=== PATIENT | female | born 1940 | race Caucasian/White ===

== ENCOUNTER 2018-03-07 07:24 | Day surgery (SDC) | payer MEDICARE, BC, SELFPAY ==
[2018-03-07] VITALS (7 sets, daily range): BP systolic 91–126; BP diastolic 42–59; PULSE 54–62; RESP 16; TEMP 36.4–37.1; O2SAT 94–100; BMI 22.5
[2018-03-07] MEDS: Lidocaine Jelly 2% 20 ML Syringe (URO-JET) 20 APPLIC (09:13)
--- NOTE | 2018-03-07 09:32 | PCM.DC.URO ---
Discharge Activity: Return to Normal Activity - in 24 hours May resume sexual activity in: No Restrictions Call your doctor if you observe: Fever of 101 or Higher, Inability to urinate, Shortness of breath, Chest pain Allergies/Adverse Reactions: Allergies codeine Allergy (Verified 02/28/18 09:39) Other hydrocodone [From Vicodin] Allergy (Verified 02/28/18 09:39) Other oxycodone Allergy (Verified 02/28/18 09:39) Other sulfamethoxazole [From Bactrim] Allergy (Verified 02/28/18 09:39) Other tramadol Allergy (Verified 02/28/18 09:39) Other trimethoprim [From Bactrim] Allergy (Verified 02/28/18 09:39) Other venlafaxine [From Effexor] Allergy (Verified 02/28/18 09:39) Other Medications to take at Discharge Ascorbic Acid [Vitamin C] 1,000 mg PO DAILY 02/28/18 Aspirin E.C. [Ecotrin] 81 mg PO DAILY@0800 02/28/18 Calcium Carbonate [Calcium] 600 mg PO BID 02/28/18 Cholecalciferol (Vitamin D3) [Vitamin D3] 400 unit PO DAILY 02/28/18 Cyanocobalamin (Vitamin B-12) [Vitamin B-12] 1,000 mcg PO DAILY 02/28/18 Estradiol/Norethindrone Acet [Estradiol-Noreth 0.5-0.1 mg Tb] 1 each PO DAILY 02/28/18 Iron Polysaccharide Complex [Ferrex 150] 150 mg PO DAILYCM 02/28/18 Magnesium 400 mg PO DAILY 02/28/18 Multivitamin [Daily Multiple Vitamin] 1 each PO DAILY 02/28/18 Polyethylene Glycol 3350 [Miralax] 17 gm PO DAILY 02/28/18 Trimipramine Maleate 100 mg PO DAILY 02/28/18 Primary Care Physician: Care Physician,No Primary [Primary Care Provider] - Test Results: Test results from this visit will be discussed in further detail at your follow-up appointment, if applicable. Please Follow Up With: Justyna Treviño MD - 12 months
--- NOTE | 2018-03-07 09:33 | PCM.IMDPSTOP ---
Immediate Post-Op Note Date of Procedure: 03/07/18 Primary Surgeon/Physician: Justyna Treviño MD boiler cleaner: Justyna Treviño Pre-Operative Diagnosis: history bladder cancer, interstitial cystitis Post-Operative Diagnosis: same Surgery/Procedure Performed:: cystoscopy Description of Surgical Findings:: Old scar from previous TUR visible. No new lesions identified. No Hunner's ulcers. Normal anatomy. Estimated Blood Loss: 0cc Specimen's removed: none - Admit VTE Documentation VTE Mechan Device Prophylaxis: SCD's Reason prophylaxis not ordered:: Treatment Not Indicated
--- NOTE | 2018-03-07 09:35 | PCM.OPRPT ---
Problem List (1) History of bladder cancer Status: Acute (2) Interstitial cystitis Status: Acute Report of Operation Date of Procedure: 03/07/18 Pre-Operative Diagnosis: history bladder cancer, interstitial cystitis Post-Operative Diagnosis: same Surgery/Procedure Performed:: cystoscopy Description of Surgical Findings:: Old scar from previous TUR visible. No new lesions identified. No Hunner's ulcers. Normal anatomy. 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 She has a history of transitional cell carcinoma of the bladder, low-grade and is presenting for her annual cystoscopic evaluation. She also has a history of interstitial cystitis and is to tolerate cystoscopy in the office. She was taken to the operating room and placed on operating room table. Anesthesia monitored the head neck area IV access and vital signs throughout the case. Once anesthesia was a probably administered the patient was placed into dorsal lithotomy position was prepped and draped in usual sterile fashion. A cystoscopic evaluation of the urethra and bladder was then performed using a 70? lens. The previous scar sites from her transitional cell carcinoma are identified. There are no new lesions seen. Her ureters were correctly located on the area of the trigone. There are no ulcerations from her interstitial cystitis identified. The patient's bladder was then emptied and she was awakened and taken recovery room in good condition. There were no complications during this procedure. - Complications none - Admit VTE Documentation VTE Mechan Device Prophylaxis: SCD's Reason prophylaxis not ordered:: Treatment Not Indicated
== END 2018-03-07 10:31 | disposition home or self-care (01) ==
LOC: SDC 07:25 → AC 07:28
PROVIDERS: Visit Provider Urology
PROC: 0TJB8ZZ Inspection of Bladder, Via Natural or Artificial Opening Endoscopic (ICD-10-PCS; CPT 52000; principal; 2018-03-07 08:40)
DX: N30.10 Interstitial cystitis (chronic) without hematuria (principal); Z85.51 Personal history of malignant neoplasm of bladder; D64.9 Anemia, unspecified; Z87.442 Personal history of urinary calculi
CPT/HCPCS: 00910; 52000; J7120

== ENCOUNTER 2019-02-27 07:13 | Day surgery (SDC) | payer MEDICARE, BC, SELFPAY ==
[2019-02-27 07:36] VITALS: BP 110/63; PULSE 59; RESP 16; TEMP 36.4; O2SAT 97; BMI 23.5
--- NOTE | 2019-02-27 08:21 | DCINST_ITS ---
Discharge Diet: No Restrictions Discharge Activity: Return to Normal Activity Call your doctor if you observe: Fever of 101 or Higher, Inability to urinate, Shortness of breath, Chest pain, Calf discomfort, Uncontrolled pain Allergies/Adverse Reactions: Allergies codeine Allergy (Verified 02/20/19 10:36) Other hydrocodone [From Vicodin] Allergy (Verified 02/20/19 10:36) Other oxycodone Allergy (Verified 02/20/19 10:36) Other sulfamethoxazole [From Bactrim] Allergy (Verified 02/20/19 10:36) Other tramadol Allergy (Verified 02/20/19 10:36) Other trimethoprim [From Bactrim] Allergy (Verified 02/20/19 10:36) Other venlafaxine [From Effexor] Allergy (Verified 02/20/19 10:36) Other Medications to take at Discharge Ascorbic Acid [Vitamin C] 1,000 mg PO DAILY 02/28/18 Aspirin E.C. [Ecotrin] 81 mg PO DAILY@0800 02/28/18 Calcium Carbonate [Calcium] 600 mg PO BID 02/28/18 Cholecalciferol (Vitamin D3) [Vitamin D3] 400 unit PO DAILY 02/28/18 Cyanocobalamin (Vitamin B-12) [Vitamin B-12] 1,000 mcg PO DAILY 02/28/18 Magnesium 400 mg PO DAILY 02/28/18 Multivitamin [Daily Multiple Vitamin] 1 each PO DAILY 02/28/18 Polyethylene Glycol 3350 [Miralax] 17 gm PO DAILY 02/28/18 D-Mannose [Mannose] 2 gm PO DAILY 02/20/19 Nitrofurantoin Macrocrystal [Macrodantin] 50 mg PO DAILY 02/20/19 Primary Care Physician: Care Physician,No Primary [Primary Care Provider] - Test Results: Test results from this visit will be discussed in further detail at your follow- up appointment, if applicable. Please Follow Up With: Justyna Treviño MD When: call office for appt Proposed Discharge Date: 02/27/19
--- NOTE | 2019-02-27 08:22 | OP.PCM_ITS ---
Problem List (1) History of bladder cancer Status: Acute (2) Interstitial cystitis Status: Acute Report of Operation Date of Procedure: 02/27/19 Pre-Operative Diagnosis: history of transitional cell carcinoma, interstitial c ystitis Post-Operative Diagnosis: same Surgery/Procedure Performed:: cystoscopy Description of Surgical Findings:: no recurrences, mass, erythema, ulceration or foreign body Type of Anesthesia:: MAC Specimen's removed: none Description of Procedure: The patient is a 78-year-old female with a long-standing history of transitional cell carcinoma of the bladder and interstitial cystitis. She has not had a recurrence of her TCC in many years. She now presents for her annual cystoscopy which is difficult for her to have done without anesthesia secondary to her interstitial cystitis. Informed consent was obtained and her preoperative culture is negative. She is taken to the operating room and placed in the operating room table. Anesthesia monitored the head, neck, airway, IV access and vital signs. Once anesthesia is a probably administered the patient was placed into dorsal lithotomy position was prepped and draped in usual sterile fashion. A cystourethroscopy was then performed with a 70 degree lens. There were no lesions, recurrences, masses, areas of erythema, ulceration or foreign body identified. Both ureteral orifices appeared to be in good anatomic position. The patient's bladder was emptied and the case was terminated. She was taken to the recovery room in good condition. There were no complications during this procedure. Grafts/Implants Used: none - Complications none - Admit VTE Documentation VTE Present on Admission: Yes VTE Mechan Device Prophylaxis: SCD's VTE Pharm Prophylaxis ordered?: No Reason prophylaxis not ordered:: Treatment Not Indicated
[2019-02-27 08:47] VITALS: BP 110/63; BP 92/53; PULSE 53; RESP 14; TEMP 36.3; O2SAT 95
[2019-02-27 08:52] VITALS: BP 102/63; BP 110/63; PULSE 52; RESP 16; O2SAT 97
[2019-02-27 08:57] VITALS: BP 105/53; BP 110/63; PULSE 49; RESP 16; O2SAT 95
[2019-02-27 09:02] VITALS: BP 108/67; BP 110/63; PULSE 52; RESP 16; TEMP 36.2; O2SAT 96
[2019-02-27 09:47] VITALS: BP 110/63
== END 2019-02-27 09:56 | disposition home or self-care (01) ==
LOC: SDC 07:14 → AC 07:17
PROVIDERS: Referring Provider Urology; Visit Provider Urology
PROC: 0TJB8ZZ Inspection of Bladder, Via Natural or Artificial Opening Endoscopic (ICD-10-PCS; CPT 52000; principal; 2019-02-27 08:40)
DX: N30.10 Interstitial cystitis (chronic) without hematuria (principal); N39.41 Urge incontinence; D64.9 Anemia, unspecified; Z87.440 Personal history of urinary (tract) infections; Z85.038 Personal history of other malignant neoplasm of large intestine; Z87.442 Personal history of urinary calculi; Z85.51 Personal history of malignant neoplasm of bladder; Z79.82 Long term (current) use of aspirin
CPT/HCPCS: 52000; J7120; J2405

== ENCOUNTER 2020-03-11 05:55 | Day surgery (SDC) | payer MEDICARE, BC, SELFPAY ==
[2020-03-11] VITALS (7 sets, daily range): BP systolic 76–133; BP diastolic 42–73; PULSE 51–60; RESP 12–18; TEMP 36.1–36.8; O2SAT 93–100; BMI 23.5
[2020-03-11] MEDS: Lactated Ringers 1,000 ML 100 ML IV (06:30)
--- NOTE | 2020-03-11 07:26 | HP.PCM_ITS ---
Problem List (1) History of bladder cancer Status: Acute (2) Interstitial cystitis Status: Acute History of Present Illness Date of Admission: 03/11/20 Chief Complaint: History of transitional cell carcinoma The patient is a 79 year old F with History of transitional cell carcinoma with interstitial cystitis and difficulty undergoing office cystoscopy, presents for cystoscopy under anesthesia. Past Medical History Allergies codeine Allergy (Verified 02/29/20 11:05) Vomiting hydrocodone [From Vicodin] Allergy (Verified 02/29/20 11:05) Vomiting oxycodone Allergy (Verified 02/29/20 11:05) Vomiting sulfamethoxazole [From Bactrim] Allergy (Verified 02/29/20 11:05) Vomiting tramadol Allergy (Verified 02/29/20 11:05) Vomiting trimethoprim [From Bactrim] Allergy (Verified 02/29/20 11:05) Vomiting venlafaxine [From Effexor] Allergy (Verified 02/29/20 11:05) Other hallucinations Home Medications: Ambulatory Orders Medication Instructions Recorded Ascorbic Acid [Vitamin C] 500 mg PO QHS 02/28/18 Aspirin E.C. [Ecotrin] 81 mg PO QHS 02/28/18 Calcium Carbonate [Calcium] 600 mg PO BID 02/28/18 Cholecalciferol (Vitamin D3) 400 unit PO QHS 02/28/18 [Vitamin D3] Cyanocobalamin (Vitamin B-12) 1,000 mcg PO QHS 02/28/18 [Vitamin B-12] Magnesium 400 mg PO QHS 02/28/18 Multivitamin [Daily Multiple 1 each PO QHS 02/28/18 Vitamin] Polyethylene Glycol 3350 [Miralax] 17 gm PO QHS PRN PRN 02/28/18 Smoking Status: Never smoker Review of Systems Constitutional: Denies: Anorexia, Chills, Fever Eyes: Denies: Vision Change HEENT: Denies: Difficulty Swallowing, Visual Changes Cardiovascular: Denies: Chest Pain, Chest Pressure Respiratory: Denies: Cough, Shortness of Breath Gastrointestinal: Denies: Abdominal Pain, Nausea Genitourinary: Denies: Dysuria, Hematuria, Retention Gynecological: Denies: Sexual concerns, Vaginal bleeding Skin: Denies: Wounds Neurological: Denies: Difficulty swallowing Endocrine: Denies: Change in Body Habitus VTE Information - Inpt Only VTE Present on Admission: Yes VTE Mechan Device Prophylaxis: SCD's VTE Pharm Prophylaxis ordered?: No Reason prophylaxis not ordered:: Treatment Not Indicated - Physical Exam Vitals/I&O's: Vital Signs Temp Pulse Resp BP Pulse Ox 98.3 F 58 L 16 124/63 H 96 03/11/20 06:20 03/11/20 06:20 03/11/20 06:20 03/11/20 06:20 03/11/20 06:20 Oxygen Delivery Method Room Air Weight: 60.3 kg Body Mass Index (BMI) 23.5 General: Alert, Oriented x3, Cooperative, No apparent distress HEENT: Atraumatic, Normocephalic Oral: Moist Mucosa Neck: Supple, Trachea Midline Lungs: Normal air movement Cardiovascular: Regular rate Abdomen: Soft, Non Tender, Non-Distended Extremities: No clubbing Skin: No rashes Musculoskeletal: No Muscle Wasting Neurological: Cranial nerves II-XII grossly intact, Neuro grossly intact Psych/Mental Status: Normal Affect Current Medications Lactated Ringer's () 1,000 mls @ 100 mls/hr IV .Q10H BALWINEDR Last Admin: 03/11/20 06:30 Dose: 100 mls/hr Documented by: Assessment/Plan All Active Problems History of bladder cancer (Acute) Interstitial cystitis (Acute) cystoscopy with possible bladder biopsy and fulguration under anesthesia Procedure Criteria Procedure Type: Elective COVID Risk Discussion: The surgeon/proceduralist and patient have discussed in detail the risk of exposure to and/or potential harm posed by the COVID-19 virus with having a surgery/procedure at this time versus the risk of delaying the surgery/proc edure. It is not possible to know either the risk of delaying the surgery or procedure or chance of getting an infection with perfect accuracy, but a joint decision was made between the patient and the surgeon/proceduralist to proceed at this time with the scheduled surgery/procedure as indicated on the consent form.
--- NOTE | 2020-03-11 07:53 | OP.PCM_ITS ---
Problem List (1) History of bladder cancer Status: Acute (2) Interstitial cystitis Status: Acute Report of Operation Date of Procedure: 03/11/20 Pre-Operative Diagnosis: History of transitional cell carcinoma, interstitial c ystitis Post-Operative Diagnosis: Same Surgery/Procedure Performed:: Cystoscopy Type of Anesthesia:: General Description of Procedure: The patient is a 79-year-old female with a history of transitional cell carcinoma of her bladder along with interstitial cystitis. Is extremely painful for her to undergo cystoscopy without anesthesia. Informed consent was obtained and she agreed to proceed with cystoscopy under anesthesia. The risks of COVID specifically were discussed as well. The patient was taken to the operating room and placed on the operating room table. Anesthesia monitored the head, neck, airway, IV access and vital signs throughout the case. Once anesthesia was appropriately administered the patient was placed into dorsal lithotomy position was prepped and draped in usual sterile fashion. The cystoscope was inserted through the urethra under direct visualization into the urinary bladder. The bladder mucosa in its entirety was visualized. There were no abnormalities identified including areas of erythema, mass, foreign body or ulceration. Her cystocele remained stable. At this time her bladder was emptied and the scope was removed. She was then awakened and taken to the recovery room in good condition. There were no complications during this procedure. Grafts/Implants Used: None - Complications None - Admit VTE Documentation VTE Present on Admission: Yes VTE Mechan Device Prophylaxis: SCD's VTE Pharm Prophylaxis ordered?: No Reason prophylaxis not ordered:: Treatment Not Indicated
--- NOTE | 2020-03-11 07:56 | DCINST_ITS ---
Discharge Diet: No Restrictions Discharge Activity: Return to Normal Activity, May Drive - for 24 hours May resume sexual activity in: No Restrictions Call your doctor if you observe: Fever of 101 or Higher, Inability to urinate, Inability to have a bowel movement, Uncontrolled pain Allergies/Adverse Reactions: Allergies codeine Allergy (Verified 02/29/20 11:05) Vomiting hydrocodone [From Vicodin] Allergy (Verified 02/29/20 11:05) Vomiting oxycodone Allergy (Verified 02/29/20 11:05) Vomiting sulfamethoxazole [From Bactrim] Allergy (Verified 02/29/20 11:05) Vomiting tramadol Allergy (Verified 02/29/20 11:05) Vomiting trimethoprim [From Bactrim] Allergy (Verified 02/29/20 11:05) Vomiting venlafaxine [From Effexor] Allergy (Verified 02/29/20 11:05) Other hallucinations Medications to take at Discharge Ascorbic Acid [Vitamin C] 500 mg PO QHS 02/28/18 Aspirin E.C. [Ecotrin] 81 mg PO QHS 02/28/18 Calcium Carbonate [Calcium] 600 mg PO BID 02/28/18 Cholecalciferol (Vitamin D3) [Vitamin D3] 400 unit PO QHS 02/28/18 Cyanocobalamin (Vitamin B-12) [Vitamin B-12] 1,000 mcg PO QHS 02/28/18 Magnesium 400 mg PO QHS 02/28/18 Multivitamin [Daily Multiple Vitamin] 1 each PO QHS 02/28/18 Polyethylene Glycol 3350 [Miralax] 17 gm PO QHS PRN PRN 02/28/18 Primary Care Physician: Care Physician,No Primary [Primary Care Provider] - Test Results: Test results from this visit will be discussed in further detail at your follow- up appointment, if applicable. Please Follow Up With: Justyna Treviño MD When: call for appt to be seen in 12 months Proposed Discharge Date: 03/11/20
== END 2020-03-11 09:23 | disposition home or self-care (01) ==
LOC: SDC 05:58 → AC 05:59
PROVIDERS: Anesthesiology; Referring Provider Urology; Visit Provider Urology
PROC: 0TBB8ZX Excision of Bladder, Via Natural or Artificial Opening Endoscopic, Diagnostic (ICD-10-PCS; CPT 52000; principal; 2020-03-11 07:20)
DX: N30.00 Acute cystitis without hematuria (principal); Z79.82 Long term (current) use of aspirin; Z85.51 Personal history of malignant neoplasm of bladder; Z88.1 Allergy status to other antibiotic agents; Z88.2 Allergy status to sulfonamides; Z88.5 Allergy status to narcotic agent; Z88.8 Allergy status to other drugs, medicaments and biological substances; Z98.890 Other specified postprocedural states
CPT/HCPCS: 00910; 52000; 87635; G2023; J7120; U0003

== ENCOUNTER 2022-02-18 06:59 | Day surgery (SDC) | payer MEDICARE, BC, SELFPAY ==
[2022-02-18] VITALS (7 sets, daily range): BP systolic 105–136; BP diastolic 52–67; PULSE 54–60; RESP 16–18; TEMP 36.3–36.8; O2SAT 92–100; BMI 24.8
--- NOTE | 2022-02-18 08:28 | DCINST_ITS ---
Discharge Instructions Diet Discharge Diet: No restrictions Activity Discharge Activity: Return to Normal Activity and May Drive (In 24 hours) May resume sexual activity in: No Restrictions Dressing / Incision Call your doctor if you observe: Fever of 101 or Higher, Inability to urinate and Inability to have a bowel movement Follow Up Care Please Follow Up With: Justyna Treviño MD When: call office for appt Test Results: Test results from this visit will be discussed in further detail at your follow- up appointment, if applicable. Discharge Plan Admission Attending Provider: Justyna Treviño Primary Care Provider: Chhaya Reece Primary Discharge Orders/Prescriptions Prescriptions: Continued multivitamin [Daily Multiple] 1 EACH tablet 1 ea PO QHS ascorbic acid (vitamin C) [Vitamin C] 1,000 MG tablet 500 mg PO QHS polyethylene glycol 3350 17 GM powder in packet 17 g PO QHS PRN PRN (Reason: Constipation) calcium carbonate 600 MG tablet 600 mg PO DAILY magnesium 250 MG tablet 250 mg PO QHS cholecalciferol (vitamin D3) [Vitamin D3] 400 UNIT capsule 400 unit PO QHS cyanocobalamin (vitamin B-12) 1,000 MCG capsule 1,000 mcg PO QHS nitrofurantoin macrocrystal 50 mg capsule 50 mg PO DAILY Label Comments: TAKE 1 CAPSULE BY MOUTH ONCE DAILY AT BEDTIME WITH FOOD OR MILK Referrals / Follow Up: Care Physician,Chhaya Primary [Primary Care Provider] - Disposition Disposition (needs filled in before D/C Order can be placed): Home, Self Care
--- NOTE | 2022-02-18 08:29 | PCM.OPRPT ---
Problems Associated Problem List Diagnoses (1) History of bladder cancer: (2) Interstitial cystitis: Report of Operation Date of Procedure: 02/18/22 Pre-Operative Diagnosis: History of bladder cancer, interstitial cystitis Post-Operative Diagnosis: Same Surgery/Procedure Performed:: Cystoscopy Surgeon: Justyna Treviño Type of Anesthesia: MAC Description of Procedure: The patient is an 81-year-old female who has a history of bladder cancer with 2 recurrences in the past. She now presents for cystoscopy under anesthesia secondary to her interstitial cystitis and discomfort with cystoscopy. Informed consent was obtained. The patient was taken to the operating room and placed on the operating room table. Anesthesia monitored the head, neck, airway, IV access and vital signs throughout the case. Once anesthesia was appropriately administered, the patient was placed into dorsal lithotomy position and was prepped and draped in usual sterile fashion. The cystoscope was inserted through the urethra under direct visualization into the urinary bladder. The mucosa in its entirety was directly visualized. It was found to be without evidence of erythema, mass, ulceration or foreign body. At this time the patient's bladder was emptied, the scope was removed and the case was terminated. The patient was awakened and taken to the recovery room in good condition. There were no complications during this procedure. Grafts/Implants Used: None Complications None Admit VTE Documentation VTE Present on Admission: Yes VTE Mechan Device Prophylaxis: SCD's VTE Pharm Prophylaxis ordered?: No Reason prophylaxis not ordered:: Treatment Not Indicated
[2022-02-18] MEDS: Lactated Ringers 1,000 ML 15 ML IV (08:58)
== END 2022-02-18 09:53 | disposition home or self-care (01) ==
LOC: SDC 07:00 → AC 07:02
PROVIDERS: Referring Provider Urology; Visit Provider Urology
PROC: 0TBB8ZX Excision of Bladder, Via Natural or Artificial Opening Endoscopic, Diagnostic (ICD-10-PCS; CPT 52000; principal; 2022-02-18 08:25)
DX: N30.10 Interstitial cystitis (chronic) without hematuria (principal); N39.41 Urge incontinence; K59.04 Chronic idiopathic constipation; Z85.51 Personal history of malignant neoplasm of bladder; Z87.448 Personal history of other diseases of urinary system
CPT/HCPCS: 52000; J7120; J2405